=== PATIENT | female | born 1955 | race Caucasian/White ===

== ENCOUNTER 2016-06-08 02:26 | Inpatient (IN) | payer OTHER ==
[~2016-06-08] VITALS: Ht 152.4 cm; Wt 111.1 kg
[~2016-06-08 02:26] MED LIST: CLONAZEPAM0.5 M2 PO; COUMADIN7.5 M1 PO; CYMBALTA30 M1 PO; CYMBALTA60 M1 PO; FIORINAL 50-321 EACH PO; LAMICTAL150 M1 PO; PRAVACHOL40 M1 PO; PROAIR HFA8.5 GM INH; TRAMADOL HCL50 M1 PO; VERAPAMIL ER240 M1 PO
[2016-06-08 06:54] LABS: PT 21.1 SEC (9.4-12.5)
[2016-06-14 09:30] LABS: PT 13.2 SEC (9.4-12.5)
[2016-06-14] MEDS ORDERED: LOVENOX40 MG/0.1 SC (09:52)
--- NOTE | 2016-06-14 11:06 | Admission Core Measures ---
Admission Lab Results I reviewed the following labs: Laboratory Tests 06/14 0925 Coagulation PT (9.4 - 12.5 SEC) 13.2 H INR (0.90 - 1.19) 1.26 H Admission Meds I reviewed the following Meds: Current Medications Sig/Cynthia Start time Last Medication Dose Stop Time Status Admin Cefazolin Sodium 3,000 MG ONCE 06/14 0000 NR (Kefzol-Ancef Inj) 06/14 2358 Heparin Sodium 5,000 UNIT ONCE 06/14 0000 NR (Porcine) 06/14 235 Acute Coronary Syndrome Inclusion Criteria ACS Diagnosis No Inpatient Core Measures LDL Reminder: If No, please order W/I first 24hr of stay Congestive Heart Failure Inclusion Criteria CHF Diagnosis No Cerebrovascular accident Inclusion Criteria CVA/TIA Diagnosis No Inpatient Core Measures Bedside Swallow Eval Reminder: If BSE failed, place ST order Antithrombotic Reminder: Order Antithrombotic Medication by end of day 2 Antithrombotic Reminder: Document Reason Antithrombotic Not ordered by end of day 2 AFIB/Flutter Reminder: If Present, add to problem list AFIB/Flutter Reminder: Order Anticoag Medication for pts with AFIB/Flutter Atherosclerosis Reminder: If Present, add to problem list LDL Reminder: If No, please order W/I first 24hr of stay PT Order Reminder: If No, please order Venous thromboembolism Inpatient Core Measures VTE Risk Factors: Age > 40, Obesity, Previous VTE, Surgery VTE Prophylaxis Ordered Inpt Mech & Pharm No Mech VTE prophylaxis d/t No contraindications No VTE Pharm Prophylaxis d/t No contraindications Inclusion Criteria - Per Current guidelines, there needs to be overlap - treatment for the first 5 days of Warfarin therapy. - Parenteral Anticoagulation (IV or SC) needs to be - given along with Warfarin therapy. VTE Diagnosis No VTE Type NONE VTE Confirmed by (Test) NONE Problem List As ranked by this Provider includes Assessment & Plan 1. S/P laparoscopic sleeve gastrectomy HOME MEDS Home Med List Albuterol Sulfate (Proair Hfa) 90 MCG HFA.AER.AD 1-2 PUF INH PRN RESPIRATORY (Reported) Clonazepam 0.5 MG TABLET 1 TAB PO DAILY DEPRESSION (Reported) Duloxetine HCl (Cymbalta) 60 MG CAPSULE.DR 1 CAP PO DAILY DEPRESSION ( Reported) Duloxetine Hydrochloride (Cymbalta) 30 MG CAPSULE.DR 1 CAP PO DAILY DEPRESSION (Reported) Enoxaparin Sodium (Lovenox) 40 MG/0.4 ML SYRINGE 1 INJ SC X1 ANTICOAG ( Reported) Fiorinal (Fiorinal 50-325-40 MG Capsule) (Unknown Strength) CAPSULE (Unknown Dose) PO PRN MIGRAINES (Reported) Lamotrigine (Lamictal) 150 MG TABLET 1 TAB PO EOD DEPRESSION (Reported) Pravastatin Sodium (Pravachol) 40 MG TABLET 1 TAB PO DAILY CHOLESTEROL ( Reported) Tramadol HCl 50 MG TABLET 25 MG PO PRN PAIN (Reported) Verapamil HCl (Verapamil ER) 240 MG TABLET.ER 1 TAB PO DAILY BP (Reported) Warfarin Sodium (Coumadin) 7.5 MG TABLET 1 TAB PO DAILY PE HISTORY (Reported)
--- NOTE | 2016-06-14 13:36 | Operative Report ---
Operative/Inv Procedure Report Surgery Date: 06/14/16 Name of Procedure: Laparoscopic sleeve gastrectomy and EGD Pre-Operative Diagnosis: Severe morbid obesity BMI 40 hypertension and sleep apnea Post-Operative Diagnosis: Severe morbid obesity BMI 40 and hypertension and sleep apnea Estimated Blood Loss: less than 50ml Surgeon/Radiologic Technology Program Director: Jaswinder Boswell MD Anesthesia: general endotracheal tube Implants: None Drains: MICA drains placed in the right upper quadrant overlying the stomach staple line Operative Indication: The patient had been taken off Coumadin and is now on Lovenox. Her INR was tested to 1.2. She is now ready for sleeve gastrectomy. I have explained the risks and potential complications of the procedure in detail including bleeding infection deep venous thrombosis pulmonary embolism injury to the esophagus stomach small intestine and large intestine injury to the surrounding organs. The patient is consented for surgical intervention and a liang Delcid Operative/Procedure Note Note: The patient was brought into the operating room and placed on the operating room table in the supine position after the administration of general anesthesia, the patient was prepped and draped in the sterile fashion. An incision was made below the umbilicus transversely down to the fascia and incision was made in the fascia 1-0 Vicryl suture was placed in the fascia. A 15 mm port was inserted into the abdominal cavity and the abdomen was insufflated with CO2 gas. A 5 mm port was placed in the right upper quadrant a 12 mm port in the right mid abdomen. There were only adhesions in the left upper quadrant which were taken down with the Harmonic scalpel. A 5 mm port was placed in the left upper quadrant a 12 mm port alf between the xiphoid and the umbilicus and a 5 mm incision was made subxiphoid and the liver was elevated. At this time the gastrocolic ligament was taken down with the LigaSure device extending all the way up to the angle of Pettit taking down the short gastric vessels. As noted did appear that the short gastric vessels were mostly already but the fatty omentum was adherent to the stomach and this was taken down. There was no evidence of the spleen. The left per the diaphragm was exposed. There is no evidence of a hiatal hernia. The stomach was decompressed with an NG tube. The bougie was placed 38 Greenlandic and the stomach position along lesser curve. First firing of a black cartridge with seam guard was placed a second firing with the black cartridge seam guard was placed. Then 3 more firings of lobe purple cartridge. The stomach was inverted and oversewn with a 20V lock suture achieving hemostasis. The bougie was removed and upper endoscopy was performed in the usual fashion of the GE junction at 35 cm there is an excellent sleeve gastrectomy other one could see as it was long and thin but not too thin. Retroflexion was performed. The pylorus was intubated and the first portion of the duodenum was visualized are no abnormalities. The endoscope was removed. Laparoscopy continued the needle was removed the stomach was placed in laparoscopic bag and retrieved through the umbilicus a MICA was placed over the staple line brought out the right upper quadrant the ports removed under direct vision the gastric and the abdomen the Valsalva maneuvers perform the fascia was closed with 3 interrupted 0 Vicryl sutures. Skin was closed with 4-0 Monocryl to MICA was sewn in with a 2-0 nylon sterile dressing was in the wound site. The patient PROCEDURE well and amputation O Bhavin Jin Findings: No evidence of hiatal hernia adhesions in the left upper quadrant no evidence of the spleen
[2016-06-14] MEDS ORDERED: HYCET 7.5 MG-3473 ML PO (15:07)
[2016-06-14] MEDS ORDERED: PROTONIX40 M3 PO (15:08)
--- NOTE | 2016-06-14 15:14 | Patient Discharge Instructions ---
Discharge Instructions General Discharge Information You were seen/treated for: Morbid obesity You had these procedures: Laparoscopic sleeve gastrectomy Watch for these problems: Significantly increased pain, nausea, temperatures, Redness or drainage from incisions Chest pain or difficulty breathing No bath, but you may shower: Yes Other wound care: Remove dressings when he come home leaving white strips intact. Shower regularly but no bath Special Instructions: See preprinted information packet Ambulate frequently May use Gas-X or gas pain Continue using Lovenox until you are INR is therapeutic and continue to follow up with your primary care physician for INR monitoring while on Coumadin therapy Diet Recommended Diet: Bariatric Activity Activity Self Limited: Yes Pounds, do NOT lift more than: 10 Acute Coronary Syndrome Inclusion Criteria At DC or during hospital stay patient has or had the following: ACS DIAGNOSIS No Discharge Core Measures Meds if any: Prescribed or Continued at Discharge Meds if any: NOT Prescribed or Continued at Discharge Congestive Heart Failure Inclusion Criteria At DC or during hospital stay patient has or had the following: CHF DIAGNOSIS No Discharge Core Measures Meds if any: Prescribed or Continued at Discharge Meds if any: NOT Prescribed or Continued at Discharge Cerebrovascular accident Inclusion Criteria At DC or during hospital stay patient has or had the following: CVA/TIA Diagnosis No Discharge Core Measures Meds if any: Prescribed or Continued at Discharge Meds if any: NOT Prescribed or Continued at Discharge Venous thromboembolism Inclusion Criteria VTE Diagnosis No VTE Type NONE VTE Confirmed by (Test) NONE Discharge Core Measures - Per Current guidelines, there needs to be overlap - treatment for the first 5 days of Warfarin therapy. - If discharged on Warfarin prior to 5 days of - overlap therapy, the patient will need to be - assessed for post discharge needs including - *Post discharge parental anticoagulation - *Warfarin and/or parental anticoagulation education - *Follow up date to check INR post discharge At least 5 days overlap therapy as Inpatient No Meds if any: Prescribed or Continued at Discharge Note: Overlap Therapy is Warfarin and Anticoagulant Meds if any: NOT Prescribed or Continued at Discharge
--- NOTE | 2016-06-14 15:18 | PN- Bariatrics ---
Subjective Subjective: The patient was seen this afternoon postoperatively. She reports that she is relatively comfortable although complains of some left shoulder pain. She has tolerated a small amount of ice chips and denies any nausea. She has no complaints of current time he denies any chest pain or difficulty breathing. Objective Vital Signs and I&Os Vital signs: Blood pressure 134/80, pulse 83, temperature 97.6, O2 saturation 96 % on 2 L via nasal cannula I's and O's: 1200 ML's in of lactated Ringer's/EBL less than 50/MICA 10 mL/patient is due to void postoperatively Physical Exam: Gen.: Alert and obvious distress Skin: Warm and dry Cardiac: S1-S2 regular Pulmonary: Bilateral breath sounds are equal but decreased at bases Abdomen: Soft, obese, appropriate incisional tenderness, bowel sounds sluggish. Port sites are clean, dry, and intact. There is a MICA 1 holding suction with serosanguineous drainage and bulb. Extremities: Bilateral lower extremities warm without calf tenderness or significant edema. Assessment/Plan Assessment/Plan Assessment: 60-year-old female status post laparoscopic sleeve gastrectomy. The patient is progressing as expected and her pain is under adequate control. Plan: Continue stage I diet but keep the patient nothing by mouth after midnight for an upper GI series in the morning Out of bed and ambulate GI and DVT prophylaxis Resume selected home medications Continue current pain regiment Strict I's and O's and monitor for postoperative void Core Measures/Miscellaneous Venous Thromboembolism VTE Risk Factors: Age > 40, Obesity, Previous VTE, Surgery VTE Contraindications: No Contraindications VTE Prophylaxis Ordered Inpt: Mech & Pharm VTE Diagnosis: No VTE Type: NONE VTE Confirmed by (Test): NONE Beta Laure Is Beta Laure a Home Med? No Antibiotics Is Patient on Antibiotics? Yes If Yes: prophylaxis
--- NOTE | 2016-06-14 15:20 | Surg Short-stay <48hrs Dis Sum ---
Visit Information Visit Dates Admission Date: 06/14/16 Discharge Date: 06/17/16 Surgical Short Stay DC Summary Admission Diagnosis: Morbid obesity Final Diagnosis: Same Procedure(s): Laparoscopic sleeve gastrectomy Summary/Significant Findings: Patient was admitted on 06/14/2016. She was brought to the operating theater and underwent a laparoscopic sleeve gastrectomy. She had shortness of breath on post-op day #1 with a cta study negative for PE, transferred to ICU for monitoring, and consultation by (pulm). Her dyspnea improved, and she was transferred out of the ICU on post-op day#2. She restarted her usual dose of coumadin (for hx of PE) on post-op day#1 and is continuing daily lovenox injections until her INR is therapeutic (INR 2-3). Her MICA drain was removed on post-op day#1. She was discharged to home on post-op day#3 after being cleared by . Condition at Discharge: Stable Discharge Disposition: home or self care Discharge instructions provided to patient/family: Yes Post discharge follow-up plan: Call the office to be seen in one week
[2016-06-14 16:00] VITALS: BP 162/92
--- NOTE | 2016-06-14 16:15 | NUR ---
ADMISSION NOTE: PT ARRIVED TO FLOOR VIA STRETCHER WITH DISTRIBUTION, WALKED FROM STRETCHER TO BED WITH MINIMAL ASSISTENCE. A/OX3, ROOM AIR, 5 ABDOMINAL SURG INSICIONS DRESSED WITH GAUZE AND TEGADERM WITH SCANT DRY BLOODY DRAINAGE, MICA DRAIN TO RT SIDE CONTAINING SMALL AMT OF BLOODY DRAINAGE, PT C/O GAS PAIN TO EPIGASTRIC REGION RADIATING TO LEFT SHOULDER, IV SITE INTAT, FLUIDS RUNNING PER MD ORDER, ORIENTED TO ROOM, PT EDUCATED TO SIP BARIATRIC DRINK 30MLS/15MINS AND AMBULATE 1 LAP EVERY HOUR. SHE WALKED ONE LAP IMMEDIATELY, STEADY GAIT AND STARTED SIPPING. RSTING IN BED IN LOW LOCKED POSITION, WILL CONTINUE TO MONITOR.
[2016-06-14 20:51] VITALS: BP 142/86
[2016-06-15 00:39] VITALS: BP 107/50
--- NOTE | 2016-06-15 07:17 | PN- Bariatrics ---
Subjective Subjective: Reports pain controlled. Nausea slightly better this morning. Ambulating with some exertional shortness of breath. No chest pains. No dizziness. Voiding without difficulty. Passing flatus. Objective Vital Signs and I&Os Vital Signs Date Time Temp Pulse Resp B/P Pulse O2 O2 Flow FiO2 Ox Delivery Rate 06/15 599 96 Room Air 06/15 0039 97.7 79 20 107/50 93 CPAP 06/15 0000 96 CPAP 06/15 0000 96 CPAP 06/14 2050 99.1 92 18 142/86 94 06/14 2000 95 Room Air 06/14 1600 98.2 89 18 162/92 95 Room Air Intake & Output 06/15 0806/15 0000 06/14 1600 06/14 0806/14 0000 06/13 1600 Intake Total 1000 620 Output Total 300 730 Balance 700 -110 Intake, IV 1000 500 Intake, Oral 120 Output, 30 Drainage Output, Urine 300 700 Patient 245 lb Weight Physical Exam: General - alert & oriented x 3. comfortable. Lungs - clear bilaterally. no w/r/r. Cardiac - s1s2. reg. Abdomen - soft. dressings stained but intact. MICA drain with serosang drainage. expected yuliana-incisional tenderness. Extremities - warm bilaterally. no c/c/e. calves soft and nontender b/l. Assessment/Plan Assessment/Plan This 60 year old white female with hx morbid obesity (BMI 40), hypertension, and sleep apnea is POD#0 s/p lap sleeve gastrectomy, MICA drain x 1 currently npo for upper gi study this morning dilaudid / toradol / hycet prn pain control f/u labs coumadin 7.5 mg today (home med for hx of PE) lovenox 40 mg daily. teaching for home oob/ambulation monitor MICA drain output protonix - gi ppx d/c planning likely tomorrow will d/w Core Measures/Miscellaneous Venous Thromboembolism VTE Risk Factors: Age > 40, Obesity, Previous VTE, Surgery VTE Contraindications: No Contraindications VTE Prophylaxis Ordered Inpt: Mech & Pharm VTE Diagnosis: No VTE Type: NONE VTE Confirmed by (Test): NONE Beta Laure Is Beta Laure a Home Med? No Antibiotics Is Patient on Antibiotics? Yes If Yes: prophylaxis
[2016-06-15 08:11] LABS: ABSOLUTE BASOPHIL COUNT 0 /CUMM (0.0-0.2); ABSOLUTE EOSINOPHIL COUNT 0 /CUMM (0.0-0.7); ABSOLUTE GRANULOCYTE CT 6.5 /CUMM (1.4-6.5); ABSOLUTE LYMPH COUNT 1.4 /CUMM (1.2-3.4); ABSOLUTE MONOCYTE COUNT 1.2 /CUMM (0.10-0.60); BASOPHIL % 0.4 % (0.0-2.0); EOSINOPHIL % 0 % (0-5); GRANULOCYTE % 70.5 % (42.2-75.2); HEMATOCRIT 41.1 % (37-47); MEAN CORPUSCULAR HGB 30.5 PG (27.0-31.0); MEAN CORPUSCULAR HGB CONC 35.3 G/DL (33.0-37.0); MEAN CORPUSCULAR VOLUME 86.5 FL (81.0-99.0); MEAN PLATELET VOLUME 7.6 FL (7.4-10.4); PLATELET COUNT 422 /CUMM (130-400); RBC DISTRIBUTION WIDTH 15.5 % (11.5-14.5); RED BLOOD CELL CT 4.76 /CUMM (4.20-5.40); WHITE BLOOD CELL COUNT 9.2 /CUMM (4.8-10.8)
[2016-06-15 08:20] LABS: PT 12.6 SEC (9.4-12.5)
[2016-06-15 08:34] VITALS: BP 112/58
--- NOTE | 2016-06-15 12:56 | NUR ---
PT C/O SOB AND STATES SHES FEELS LIKE SHE DID WHEN SHE HAD A PE; RR 28, HR 92, BP 130/80, PSO2 98 TEMP 97.7; PA NOTIFIEDL STAT CTA IN PLACE.
[2016-06-15 13:00] VITALS: BP 130/80
--- NOTE | 2016-06-15 13:12 | Event Note ---
Event Note Event Note: I was called by the patient's nurse that she was complaining of a sudden onset of chest pain which she reports feeling similar to the pain she has had in the past when diagnosed with a pulmonary embolus. The patient was afebrile with stable vital signs and adequate oxygenation. The patient was seen reporting that the pain started substernal with some radiation to her right chest she described it as sharp and pressure-like in nature. She reports that her pain made it difficult to take a deep breath. She also is complaining of a bandlike pain across her upper abdomen which I explained to was probably normal postoperative course. She no other complaints the current time. A stat CT angiogram, EKG, and troponin have been ordered. The case was discussed with Jaswinder Delcid MD who agrees the above plan and will be in to see the patient shortly.
--- NOTE | 2016-06-15 14:03 | NUR ---
CALL FROM CT EXPRESSING COMCERN REGARDING PT; CALLER STATES PT IS SOB AND DOESNT LOOK WELL; THIS RN INFORMED THEM TO CALL A RAPID RESPONSE IF NEEDED; NO RR HEARD; RETURN CALL MADE TO CT SCAN; RN ON PHONE INFORMED ME PT WOULD BE PLACED ON A MONITOR AND SENT UP AND THAT SURGICAL PA WAS MADE AWARE.
--- NOTE | 2016-06-15 14:12 | RADIOLOGY REPORT ---
EXAMINATION: FL SINGLE-CONTRAST UPPER GI SERIES WITH KUB CLINICAL INFORMATION: Status post sleeve gastrectomy. COMPARISON: Esophagram 10/26/[address] scan of the abdomen and pelvis 05/28/2012. TECHNIQUE: Examination performed with 30 mL oral Gastroview. Fluoroscopic loop images and spot radiographs were obtained. FINDINGS: Preliminary AP radiograph demonstrates a left upper quadrant staple line related to sleeve gastrectomy. An IVC filter is redemonstrated. Patient ingested water-soluble contrast without difficulty. There is no evidence of distal esophageal dilatation. There is mild delay in passage of contrast across the gastroesophageal junction into the stomach. The proximal and mid stomach have a tubular configuration related to the sleeve gastrectomy. No evidence of leak or obstruction. There is free flow of contrast through the pylorus into the duodenal sweep. FLUOROSCOPY TIME: 1 minute 42 seconds IMPRESSION: 1. No evidence of leak or obstruction post sleeve gastrectomy. 2. There is mild delay in passage of contrast across the gastroesophageal junction.
--- NOTE | 2016-06-15 14:14 | CT SCAN REPORT ---
EXAMINATION: CT ANGIOGRAM OF THE CHEST WITH CONTRAST (CT PULMONARY ANGIOGRAM FOR PE) CLINICAL INFORMATION: Chest pain. COMPARISON: Chest CT from 04/12/2010. CXR from 06/07/2016. TECHNIQUE: Prior to contrast administration, noncontrast localization images were obtained. Subsequently, multidetector volumetric imaging was performed from the thoracic inlet to below the diaphragms following the administration of 94 mL of Optiray 320 intravenous contrast. No contrast reaction reported. Sagittal, coronal, and MIP oblique sagittal reformatted images were obtained on the CT workstation, uploaded to PACS, and reviewed. Total exam dose-length product 540 mGy-cm FINDINGS: QUALITY OF STUDY/CONTRAST BOLUS: Satisfactory. PULMONARY ARTERIES: No filling defects are identified in the main, lobar or segmental vessels. THORACIC AORTA: There is atherosclerotic calcification of the thoracic aorta without aneurysm or dissection. LUNGS AND PLEURA: Trachea and central airways are widely patent and normal in caliber. There is an old 0.3 cm calcified subpleural nodule in the medial right upper lobe. There are old, stable 0.3 cm noncalcified nodules within the right middle lobe (images 216 and 232, series 2). There is a punctate calcified granuloma in the lateral segment of the right middle lobe. There is an old, 0.3 cm noncalcified nodule pleural-based nodule of the right lower lobe (image 217, series 2). 0.3 cm calcified granuloma within the left upper lobe. No pulmonary edema, focal consolidation, pleural effusion or pneumothorax. MEDIASTINUM: The heart size is normal. No pericardial effusion. Small amount of fluid is seen within the lumen of the esophagus. No focal findings within the partially visualized thyroid gland. No evidence of septal bowing or right heart strain. LYMPHATICS: No pathologically enlarged axillary, hilar or mediastinal lymph nodes. UPPER ABDOMEN: Surgical changes from partial/sleeve gastrectomy. Spleen is absent. No reflux of contrast into the hepatic veins to suggest elevated right heart pressures. OSSEOUS STRUCTURES: No acute findings within the degenerated thoracic spine. No aggressive osseous lesions. IMPRESSION: 1. No pulmonary embolism. 2. Old granulomatous disease. 3. No acute pneumonia, pleural effusion or lymphadenopathy.
[2016-06-15 16:00] VITALS: BP 112/60
--- NOTE | 2016-06-15 19:21 | Cons- Pulmonary ---
General Information and HPI Consulting Request Date of Consult: 06/15/16 Requested By: Surg History of Present Illness: This is a lady with a remote history of pulmonary embolism, IVC filter, has been on warfarin since then, obstructive sleep apnea on CPAP, heriditary spherocytosis status post splenectomy, dyslipidemia, migraine, previous endometrial ablation, GERD, varicose veins status post stripping, dyslipidemia, depression, previous , status post knee replacements both sides, carpal tunnel, reactive airway disease on and off, anxiety and depression, recent operation for bariatric surgery. She has had status post lap sleeve gastrectomy. Patient has been on a usual medication. However today she was complaining of sudden onset precordial chest discomfort and she felt the pain similar to the one she has had a PE before. Subsequently a CTA was unremarkable. He did show some atelectasis in the CT scan. She did have an EKG and blood work which was unremarkable. And she was transferred to the intensive care unit for monitoring. And hence this consult. When I saw her she had no cough wheezing shortness of breath no fever no chills. Her chest pain had resolved. 8 O2 sat was 97% on room air. Did increase to 99 % upon deep inspiration. No leg pain leg edema. No abdominal pain abdominal discomfort. Patient has had sleep apnea and has been on CPAP yesterday. Review of symptoms as noted above No previous history of significant CO. No SIGNIFICANT DATA SMA-7 unremarkable troponin normal Pending EKG CT scan reviewed which showed no pulmonary embolism old granulomatous disease no acute pneumonia and pleural effusion or lymphadenopathy. And there was no significant difference from the previous CT done from 2009. Allergies/Medications Allergies: Coded Allergies: risperidone (PSYCHOTIC 05/31/16) Uncoded Allergies: BATH OILS (Intermediate, HIVES 09/04/12) Home Med List: Albuterol Sulfate (Proair Hfa) 90 MCG HFA.AER.AD 1-2 PUF INH PRN RESPIRATORY (Reported) Clonazepam 0.5 MG TABLET 1 TAB PO DAILY DEPRESSION (Reported) Duloxetine HCl (Cymbalta) 60 MG CAPSULE.DR 1 CAP PO DAILY DEPRESSION ( Reported) Duloxetine Hydrochloride (Cymbalta) 30 MG CAPSULE.DR 1 CAP PO DAILY DEPRESSION (Reported) Enoxaparin Sodium (Lovenox) 40 MG/0.4 ML SYRINGE 1 INJ SC X1 ANTICOAG ( Reported) Fiorinal (Fiorinal 50-325-40 MG Capsule) (Unknown Strength) CAPSULE (Unknown Dose) PO PRN MIGRAINES (Reported) Lamotrigine (Lamictal) 150 MG TABLET 1 TAB PO EOD DEPRESSION (Reported) Pravastatin Sodium (Pravachol) 40 MG TABLET 1 TAB PO DAILY CHOLESTEROL ( Reported) Tramadol HCl 50 MG TABLET 25 MG PO PRN PAIN (Reported) Verapamil HCl (Verapamil ER) 240 MG TABLET.ER 1 TAB PO DAILY BP (Reported) Warfarin Sodium (Coumadin) 7.5 MG TABLET 1 TAB PO DAILY PE HISTORY (Reported) Review of Systems Review of Systems Constitutional: Reports: see HPI. Past History Medical History Blood Transfusion Hx: Yes Neurological: migraine EENT: hearing loss, otitis media Cardiovascular: hypertension Respiratory: obstructive sleep apnea Gastrointestinal: NONE Hepatic: NONE Renal: NONE Musculoskeletal: chronic back pain, osteoarthritis, PAIN TO KNEES AND FEET Psychiatric: anxiety, depression Endocrine: NONE Blood Disorders: POICOLYTOSISHIGH PLATELET 2 BILATERAL PE'S, IVC FILTER Cancer(s): NONE BIOLOGY LABORATORY ASSISTANT/Reproductive: endometriosis Surgical History Surgical History: BILAT TOTAL KNE ARTHOPLAS SLENECTOMY, TUBAL LIGATION, BILAT CARPAL TUNNEL, ENDOMETRIAL ABALATION Psychosocial History Where Do You Live? Home Services at Home: None Smoking Status: Never Smoked Exam & Diagnostic Data Last 24 Hrs of Vital Signs/I&O Vital Signs Date Time Temp Pulse Resp B/P Pulse O2 O2 Flow FiO2 Ox Delivery Rate 06/15 1600 97 Room Air 06/15 1600 99.1 78 22 112/60 97 Room Air 06/15 1300 97.7 92 28 130/80 98 Room Air 06/15 1033 Room Air 06/15 0834 98.5 73 20 112/58 92 Room Air 06/15 0800 Room Air 06/15 0600 96 Room Air 06/15 0039 97.7 79 20 107/50 93 CPAP 06/15 0000 96 CPAP 06/15 0000 96 CPAP 06/14 205 99.1 92 18 142/86 94 06/14 2000 95 Room Air Intake & Output 06/15 1600 06/15 0800 06/15 0000 Intake Total 1200 1000 620 Output Total 440 310 730 Balance 760 690 -110 Intake, IV 600 1000 500 Intake, Oral 600 120 Output, 10 30 Drainage Output, Urine 440 300 700 Patient 245 lb Weight Last 48 Hrs of Labs/Blaise: Laboratory Tests 06/15/16 1427: Troponin I < 0.01 06/15/16 0640: Anion Gap 15, Estimated GFR > 60, BUN/Creatinine Ratio 15.0, PT 12.6 H, INR 1.20 H, CBC w Diff NO MAN DIFF REQ, RBC 4.76, MCV 86.5, MCH 30.5, RDW 15.5 H, MPV 7.6, Gran % 70.5, Lymphocytes % 15.7 L, Monocytes % 13.4 H, Eosinophils % 0, Basophils % 0.4, Absolute Granulocytes 6.5, Absolute Lymphocytes 1.4, Absolute Monocytes 1.2 H, Absolute Eosinophils 0, Absolute Basophils 0, PUBS MCHC 35.3 06/14/16 0925: PT 13.2 H, INR 1.26 H Assessment/Plan Impression/Plan: Physical Exam: General - alert & oriented x 3. comfortable. Lungs - clear bilaterally. no w/r/r. Cardiac - s1s2. reg. Abdomen - soft. dressings stained but intact.. expected yuliana-incisional tenderness. Extremities - warm bilaterally. no c/c/e. calves soft and nontender b/l. IMPRESSION This is a lady with a remote history of pulmonary embolism, IVC filter, has been on warfarin since then, obstructive sleep apnea on CPAP, heriditary spherocytosis status post splenectomy, dyslipidemia, migraine, previous endometrial ablation, GERD, varicose veins status post stripping, dyslipidemia, depression, previous , status post knee replacements both sides, carpal tunnel, reactive airway disease on and off, anxiety and depression, recent operation for bariatric surgery. Precordial chest discomfort most likely related to her surgery versus GERD. No clinical evidence suggestive of active pulmonary embolism or active pulmonary physiology. No clinical evidence suggestive of active ischemic heart however this needs to be ruled out Morbid obesity with sleep apnea. Patient is on CPAP at home. This needs to be avoided the next few days to prevent any gastric distention as she recently had gastric surgery No clinical evidence suggestive of venous thromboembolism Anxiety and depression stable Previous splenectomy hence immunosuppressed RECOMMENDATION Rule out myocardial infarction Serial EKG Proton pump inhibitor twice a day Venodyne boots Continue warfarin and suggest using Lovenox 40 mg pill INR is therapeutic as patient is immediate postop full anticoagulation can be avoided Cardiology evaluation of chest discomfort persists Monitor If she stable she can return to the floor Keep O2 sat 90-92%. Avoid CPAP for the next 2-3 days as she did have recent gastric surgery as CPAP could precipitated gastric distention Appears to be stable Consult Acknowledgment - Thank you for your consult request.
[2016-06-16] VITALS: BP 132/80
[2016-06-16 05:25] LABS: ABSOLUTE BASOPHIL COUNT 0 /CUMM (0.0-0.2); ABSOLUTE EOSINOPHIL COUNT 0.1 /CUMM (0.0-0.7); ABSOLUTE GRANULOCYTE CT 3.4 /CUMM (1.4-6.5); ABSOLUTE LYMPH COUNT 2.5 /CUMM (1.2-3.4); ABSOLUTE MONOCYTE COUNT 1.3 /CUMM (0.10-0.60); BASOPHIL % 0.6 % (0.0-2.0); EOSINOPHIL % 0.9 % (0-5); GRANULOCYTE % 46.1 % (42.2-75.2); HEMATOCRIT 38.8 % (37-47); MEAN CORPUSCULAR HGB 30.5 PG (27.0-31.0); MEAN CORPUSCULAR VOLUME 87.1 FL (81.0-99.0); MEAN PLATELET VOLUME 7.5 FL (7.4-10.4); PLATELET COUNT 384 /CUMM (130-400); PT 13.3 SEC (9.4-12.5); RBC DISTRIBUTION WIDTH 15.7 % (11.5-14.5); RED BLOOD CELL CT 4.46 /CUMM (4.20-5.40); WHITE BLOOD CELL COUNT 7.4 /CUMM (4.8-10.8)
--- NOTE | 2016-06-16 05:54 | PN- Bariatrics ---
Subjective Subjective: pod#2 s/p lap sleeve transferred to icu yesterday for monitoring for cp/sob chest cta negative for pe yesterday O2 sat overnight 97 on 2L deneis cp, sob now Objective Vital Signs and I&Os Vital Signs Date Time Temp Pulse Resp B/P Pulse O2 O2 Flow FiO2 Ox Delivery Rate 06/16 0400 97 Nasal 2.0L Cannula 06/16 0400 97 Nasal 2.0L Cannula 06/16 0000 98.3 74 20 132/80 95 Nasal 2.0L Cannula 06/16 0000 95 Nasal 2.0L Cannula 06/15 2200 94 Nasal 2.0L Cannula 06/15 1600 97 Room Air 06/15 1600 99.1 78 22 112/60 97 Room Air 06/15 1300 97.7 92 28 130/80 98 Room Air 06/15 1033 Room Air 06/15 0834 98.5 73 20 112/58 92 Room Air 06/15 0800 Room Air 06/15 0600 96 Room Air Intake & Output 06/16 0800 06/16 0000 06/15 1600 06/15 0800 06/15 0000 06/14 1600 Intake Total 1240 1200 1000 620 Output Total 700 440 310 730 Balance 540 760 690 -110 Intake, IV 5044 693 8124 500 Intake, Oral 240 600 120 Output, 10 30 Drainage Output, Urine 700 440 300 700 Patient 245 lb Weight Physical Exam: cv: rrr lungs: clear abd: soft, drsg dry no guarding to palp expected tenderness to palp ext: warm, distal cms grossly intact no calf tenderness to palp Assessment/Plan Assessment/Plan surgical stable plan oob ambulate f/u am labs home d/c planning Core Measures/Miscellaneous Venous Thromboembolism VTE Risk Factors: Age > 40, Obesity, Previous VTE, Surgery VTE Contraindications: No Contraindications VTE Prophylaxis Ordered Inpt: Mech & Pharm VTE Diagnosis: No VTE Type: NONE VTE Confirmed by (Test): NONE Beta Laure Is Beta Laure a Home Med? No Antibiotics Is Patient on Antibiotics? Yes If Yes: prophylaxis
[2016-06-16 08:00] VITALS: BP 122/60
--- NOTE | 2016-06-16 09:25 | PN- Pulmonary ---
Subjective HPI/Critical Care Issues: Chest pain resolved No significant shortness of breath Vital signs have stabilized. Patient has no major set of 95% but she feels better with oxygen. She does have mild hypoxemia upon exertion. She is afebrile and heart rate is 74. Review of symptoms otherwise unremarkable. No abdominal pain nausea vomiting. Her CTA was reviewed which showed old granulomatous disease Other blood work was extensively reviewed as noted in the computer her blood work was essentially unremarkable her previous troponin was completely unremarkable CBCs unremarkable her INR this morning was 1.27. Objective Current Medications: Current Medications Sig/Cynthia Start time Last Medication Dose Route Stop Time Status Admin Acetaminophen/ 15 ML Q6P PRN 06/15 1445 AC Hydrocodone Bitart PO Acetaminophen/ 15 ML Q6P PRN 06/14 1630 DC Hydrocodone Bitart PO Albuterol Sulfate 2 PUF Q4P PRN 06/15 1445 AC INH Albuterol Sulfate 2 PUF Q4P PRN 06/14 1315 DC INH Clonazepam 0.5 MG DAILY 06/16 1000 AC PO 06/23 0959 Clonazepam 0.5 MG DAILY 06/15 1000 DC 06/15 PO 06/22 0959 1041 Duloxetine HCl 30 MG DAILY 06/16 1000 AC PO Duloxetine HCl 60 MG AT BEDTIME 06/15 2200 AC 06/15 PO 2135 Duloxetine HCl 30 MG DAILY 06/15 1000 DC 06/15 PO 1040 Duloxetine HCl 60 MG AT BEDTIME 06/14 2200 DC 06/14 PO 2208 Enoxaparin Sodium 40 MG 0600 06/16 0600 AC 06/16 SC 0638 Enoxaparin Sodium 40 MG 0600 06/15 0600 DC 06/15 SC 0553 Hydromorphone HCl 0.6 MG Q4P PRN 06/15 1445 AC 06/15 IV 2038 Hydromorphone HCl 0.6 MG Q4P PRN 06/15 0730 DC 06/15 IV 1237 Hyoscyamine 0.125 MG Q4 06/15 1800 AC 06/16 SL 0637 Hyoscyamine 0.125 MG Q4 06/14 1400 DC 06/15 SL 1442 Ketorolac 30 MG Q8P PRN 06/15 1445 AC 06/16 Tromethamine IV 0402 Ketorolac 30 MG Q8P PRN 06/14 1630 DC 06/14 Tromethamine IV 2046 Lorazepam 0.5 MG ONE TIME ONE 06/15 1445 DC 06/15 IV 06/15 1446 1440 Ondansetron HCl 4 MG Q6P PRN 06/15 1445 AC 06/15 IV 2135 Ondansetron HCl 4 MG Q6P PRN 06/14 1630 DC IV Pantoprazole Sodium 40 MG DAILY 06/16 1000 AC IV Pantoprazole Sodium 40 MG DAILY 06/14 1309 DC 06/15 IV 1041 Patient Medication 1 ED .STK-MED ONE 06/15 1339 DC Teaching ED 06/15 1340 Potassium Chloride 20 MEQ Q10H 06/15 1500 DC 06/16 Dextrose/Sodium 1,000 ML IV 0013 Chloride Potassium Chloride 20 MEQ .Q10H 06/15 1445 CAN Dextrose/Sodium 1,000 ML IV Chloride Potassium Chloride 20 MEQ .Q10H 06/14 1630 DC 06/15 Dextrose/Sodium 1,000 ML IV 0646 Chloride Simethicone 40 MG Q6P PRN 06/15 1445 AC PO Simethicone 40 MG Q6P PRN 06/14 1630 DC 06/14 PO 2210 Warfarin Sodium 7.5 MG COUMADIN 1700 ONE 06/16 1700 AC PO 06/16 1701 Warfarin Sodium 7.5 MG COUMADIN 1700 ONE 06/15 1700 DC 06/15 PO 06/15 1701 1658 Laboratory Tests 06/16 06/15 0350 1427 Chemistry Sodium (137 - 145 mmol/L) 143 Potassium (3.5 - 5.1 mmol/L) 4.3 Chloride (98 - 107 mmol/L) 105 Carbon Dioxide (22 - 30 mmol/L) 28 Anion Gap (5 - 16) 10 BUN (7 - 17 mg/dL) 9 Creatinine (0.5 - 1.0 mg/dL) 0.8 Estimated GFR (>60 ml/min) > 60 BUN/Creatinine Ratio (7 - 25 %) 11.3 Troponin I (< 0.11 ng/ml) < 0.01 Coagulation PT (9.4 - 12.5 SEC) 13.3 H INR (0.90 - 1.19) 1.27 H Hematology CBC w Diff NO MAN DIFF REQ WBC (4.8 - 10.8 /CUMM) 7.4 RBC (4.20 - 5.40 /CUMM) 4.46 Hgb (12.0 - 16.0 G/DL) 13.6 Hct (37 - 47 %) 38.8 MCV (81.0 - 99.0 FL) 87.1 MCH (27.0 - 31.0 PG) 30.5 RDW (11.5 - 14.5 %) 15.7 H Plt Count (130 - 400 /CUMM) 384 MPV (7.4 - 10.4 FL) 7.5 Gran % (42.2 - 75.2 %) 46.1 Lymphocytes % (20.5 - 51.1 %) 34.6 Monocytes % (1.7 - 9.3 %) 17.8 H Eosinophils % (0 - 5 %) 0.9 Basophils % (0.0 - 2.0 %) 0.6 Absolute Granulocytes (1.4 - 6.5 /CUMM) 3.4 Absolute Lymphocytes (1.2 - 3.4 /CUMM) 2.5 Absolute Monocytes (0.10 - 0.60 /CUMM) 1.3 H Absolute Eosinophils (0.0 - 0.7 /CUMM) 0.1 Absolute Basophils (0.0 - 0.2 /CUMM) 0 PUBS MCHC (33.0 - 37.0 G/DL) 35.0 /06/14 0640 0925 Chemistry Sodium (137 - 145 mmol/L) 143 Potassium (3.5 - 5.1 mmol/L) 4.5 Chloride (98 - 107 mmol/L) 105 Carbon Dioxide (22 - 30 mmol/L) 23 Anion Gap (5 - 16) 15 BUN (7 - 17 mg/dL) 12 Creatinine (0.5 - 1.0 mg/dL) 0.8 Estimated GFR (>60 ml/min) > 60 BUN/Creatinine Ratio (7 - 25 %) 15.0 Coagulation PT (9.4 - 12.5 SEC) 12.6 H 13.2 H INR (0.90 - 1.19) 1.20 H 1.26 H Hematology CBC w Diff NO MAN DIFF REQ WBC (4.8 - 10.8 /CUMM) 9.2 RBC (4.20 - 5.40 /CUMM) 4.76 Hgb (12.0 - 16.0 G/DL) 14.5 Hct (37 - 47 %) 41.1 MCV (81.0 - 99.0 FL) 86.5 MCH (27.0 - 31.0 PG) 30.5 RDW (11.5 - 14.5 %) 15.5 H Plt Count (130 - 400 /CUMM) 422 H MPV (7.4 - 10.4 FL) 7.6 Gran % (42.2 - 75.2 %) 70.5 Lymphocytes % (20.5 - 51.1 %) 15.7 L Monocytes % (1.7 - 9.3 %) 13.4 H Eosinophils % (0 - 5 %) 0 Basophils % (0.0 - 2.0 %) 0.4 Absolute Granulocytes (1.4 - 6.5 /CUMM) 6.5 Absolute Lymphocytes (1.2 - 3.4 /CUMM) 1.4 Absolute Monocytes (0.10 - 0.60 /CUMM) 1.2 H Absolute Eosinophils (0.0 - 0.7 /CUMM) 0 Absolute Basophils (0.0 - 0.2 /CUMM) 0 PUBS MCHC (33.0 - 37.0 G/DL) 35.3 Microbiology Date/Time Procedure - Status Source Growth 06/15 1500 Surveillance Culture - RECD UPPER RESP 06/15 1500 Surveillance Culture - RECD GI Vital Signs & I&O Last 24 Hrs of Vitals and I&O: Vital Signs Date Time Temp Pulse Resp B/P Pulse O2 O2 Flow FiO2 Ox Delivery Rate 06/16 0800 97 Nasal 2.0L Cannula 06/16 0800 98.0 74 22 122/60 95 Nasal 2.0L Cannula 06/16 0400 97 Nasal 2.0L Cannula 06/16 0400 97 Nasal 2.0L Cannula 06/16 0000 98.3 74 20 132/80 95 Nasal 2.0L Cannula 06/16 0000 95 Nasal 2.0L Cannula 06/15 2200 94 Nasal 2.0L Cannula 06/15 1600 97 Room Air 06/15 1600 99.1 78 22 112/60 97 Room Air 06/15 1300 97.7 92 28 130/80 98 Room Air 06/15 1033 Room Air Intake & Output 06/16 1600 06/16 0800 06/16 0000 Intake Total 1040 1240 Output Total 1550 700 Balance -510 540 Intake, IV 800 1000 Intake, Oral 240 240 Number 0 Bowel Movements Output, Urine 1550 700 Impression/Plan Impression/Plan Impression/Plan: Physical Exam: General - alert & oriented x 3. comfortable. Lungs - clear bilaterally. no w/r/r. Cardiac - s1s2. reg. Abdomen - soft. dressings stained but intact.. expected yuliana-incisional tenderness. Extremities - warm bilaterally. no c/c/e. calves soft and nontender b/l. IMPRESSION This is a lady with a remote history of pulmonary embolism, IVC filter, has been on warfarin since then, obstructive sleep apnea on CPAP, heriditary spherocytosis status post splenectomy, dyslipidemia, migraine, previous endometrial ablation, GERD, varicose veins status post stripping, dyslipidemia, depression, previous , status post knee replacements both sides, carpal tunnel, reactive airway disease on and off, anxiety and depression, recent operation for bariatric surgery. Precordial chest discomfort most likely related to her surgery versus GERD. No clinical evidence suggestive of active pulmonary embolism or active pulmonary physiology. No clinical evidence suggestive of active ischemic heart however this needs to be ruled out Morbid obesity with sleep apnea. Patient is on CPAP at home. This needs to be avoided the next few days to prevent any gastric distention as she recently had gastric surgery No clinical evidence suggestive of venous thromboembolism Anxiety and depression stable Previous splenectomy hence immunosuppressed RECOMMENDATION Add troponin from this ams lab Serial EKG Proton pump inhibitor twice a day Venodyne boots Continue warfarin and suggest using Lovenox 40 mg till INR is therapeutic as patient is immediate postop full anticoagulation can be avoid Ok to the floor Keep O2 sat 90-92%. Avoid CPAP for the next 2-3 days as she did have recent gastric surgery as CPAP could precipitated gastric distention Appears to be stable ok to the floor and wean off oxygen
--- NOTE | 2016-06-16 09:40 | PN- General Surgery ---
Subjective Subjective: The patient feels better but still some shortness of breathe Review of Systems: O2 sat is 99 on 2L NC Review of Systems Constitutional: Reports: see HPI. Denies: no symptoms, chills, diaphoresis, fever, malaise, weakness, unexplained weight loss. Cardiovascular: Denies: chest pain, edema, palpitations. Respiratory: Reports: short of breath. Denies: cough, hemoptysis, orthopnea, sputum production, stridor, wheezing. Skin: Denies: erythema, rash. Objective Vital Signs and I&Os Stable Assessment/Plan Assessment/Plan The patient has atelectasis and needs more incentive spirometry and should go to the floor and ambulate. Possible discharge tommorrow.Stage 1 diet. Problem List: 1. S/P laparoscopic sleeve gastrectomy Core Measures/Miscellaneous Venous Thromboembolism VTE Risk Factors: Age > 40, Obesity, Previous VTE, Surgery VTE Contraindications: No Contraindications VTE Prophylaxis Ordered Inpt Mech & Pharm VTE Diagnosis: No VTE Type: NONE VTE Confirmed by (Test): NONE Beta Laure Is Beta Laure a Home Med? No Antibiotics Is Patient on Antibiotics? Yes If Yes: prophylaxis
[2016-06-16 16:00] VITALS: BP 120/60
[2016-06-17 00:42] VITALS: BP 112/86
[2016-06-17 08:13] VITALS: BP 110/77
[2016-06-17 08:21] LABS: PT 18.1 SEC (9.4-12.5)
--- NOTE | 2016-06-17 08:31 | PN- Pulmonary ---
Subjective HPI/Critical Care Issues: Doing better Afebrile Oxygenating well Being discharged today No pain next and review of symptoms otherwise unremarkable Objective Current Medications: Current Medications Sig/Cynthia Start time Last Medication Dose Route Stop Time Status Admin Acetaminophen/ 15 ML Q6P PRN 06/15 1445 AC Hydrocodone Bitart PO Albuterol Sulfate 2 PUF Q4P PRN 06/15 1445 AC INH Clonazepam 0.5 MG DAILY 06/16 1000 AC 06/16 PO 06/23 0959 0955 Clonazepam 1 MG .STK-MED ONE 06/16 0950 DC PO 06/16 0951 Duloxetine HCl 30 MG DAILY 06/16 1000 AC 06/16 PO 0955 Duloxetine HCl 60 MG AT BEDTIME 06/15 2200 AC 06/16 PO 2128 Enoxaparin Sodium 40 MG 0600 06/16 0600 AC 06/17 SC 0619 Hydromorphone HCl 0.6 MG Q4P PRN 06/15 1445 AC 06/15 IV 2038 Hyoscyamine 0.125 MG Q4 06/15 1800 AC 06/17 SL 0619 Ketorolac 30 MG .STK-MED ONE 06/16 2122 DC Tromethamine IM 06/16 2123 Ketorolac 15 MG .STK-MED ONE 06/16 1141 DC Tromethamine IM 06/16 1142 Ketorolac 15 MG .STK-MED ONE 06/16 1139 DC Tromethamine IM 06/16 1140 Ketorolac 30 MG Q8P PRN 06/15 1445 AC 06/16 Tromethamine IV 2128 Ondansetron HCl 4 MG .STK-MED ONE 06/16 1138 DC IM 06/16 1139 Ondansetron HCl 4 MG Q6P PRN 06/15 1445 AC 06/16 IV 1142 Pantoprazole Sodium 40 MG DAILY 06/16 1000 AC 06/16 IV 0955 Simethicone 40 MG Q6P PRN 06/15 1445 AC PO Warfarin Sodium 7.5 MG COUMADIN 1700 ONE 06/16 1700 DC 06/16 PO 06/16 1701 1546 Vital Signs & I&O Last 24 Hrs of Vitals and I&O: Vital Signs Date Time Temp Pulse Resp B/P Pulse O2 O2 Flow FiO2 Ox Delivery Rate 06/17 812 97.7 68 20 110/77 93 Room Air 06/17 0600 93 Room Air 06/17 0042 97.9 76 20 112/86 95 Room Air 06/16 2200 Room Air 06/16 1600 97.1 76 20 120/60 96 Intake & Output 06/17 1600 06/17 0800 06/17 0000 Intake Total 240 360 Output Total 500 Balance -260 360 Intake, Oral 240 360 Output, Urine 500 Impression/Plan Impression/Plan Impression/Plan: Physical Exam: General - alert & oriented x 3. comfortable. Lungs - clear bilaterally. no w/r/r. Cardiac - s1s2. reg. Abdomen - soft. expected yuliana-incisional tenderness. Extremities - warm bilaterally. no c/c/e. calves soft and nontender b/l. IMPRESSION This is a lady with a remote history of pulmonary embolism, IVC filter, has been on warfarin since then, obstructive sleep apnea on CPAP, heriditary spherocytosis status post splenectomy, dyslipidemia, migraine, previous endometrial ablation, GERD, varicose veins status post stripping, dyslipidemia, depression, previous , status post knee replacements both sides, carpal tunnel, reactive airway disease on and off, anxiety and depression, recent operation for bariatric surgery. Resolved Precordial chest discomfort most likely related to her surgery versus GERD. No clinical evidence suggestive of active pulmonary embolism or active pulmonary physiology. No clinical evidence suggestive of active ischemic heart however this needs to be ruled out Morbid obesity with sleep apnea. Patient is on CPAP at home. This needs to be avoided the next few days to prevent any gastric distention as she recently had gastric surgery No clinical evidence suggestive of venous thromboembolism Anxiety and depression stable Previous splenectomy hence immunosuppressed RECOMMENDATION Stable to be discharged Proton pump inhibitor twice a day Continue warfarin Can resume CPAP Appears to be stable ok to DC
--- NOTE | 2016-06-17 08:38 | PN- Bariatrics ---
Subjective Subjective: Feeling better. Improved breathing. Tolerating stage 1 bariatric diet. Only nauseous when "taking too much at a time". Otherwise not nauseous. Passing flatus and +bms. Ambulating well. No dizziness. Baseline dyspnea with exertion. No chest pains. Voiding well. Familiar with lovenox injections. Objective Vital Signs and I&Os Vital Signs Date Time Temp Pulse Resp B/P Pulse O2 O2 Flow FiO2 Ox Delivery Rate 06/17 812 97.7 68 20 110/77 93 Room Air 06/17 0600 93 Room Air 06/17 0042 97.9 76 20 112/86 95 Room Air 06/16 2200 Room Air 06/16 1600 97.1 76 20 120/60 96 Intake & Output 06/17 1600 06/17 0806/17 0000 06/16 1600 06/16 0806/16 0000 Intake Total 240 854 931 9132 1240 Output Total 778 855 0469 700 Balance -260 360 -260 -510 540 Intake, IV 716 144 5592 Intake, Oral 240 360 240 240 240 Number 1 0 Bowel Movements Output, Urine 416 295 3786 700 Physical Exam: General - alert & oriented x 3. comfortable. no acute distress. Lungs - clear bilaterally. no w/r/r. Cardiac - s1s2. reg. Abdomen - soft. dressings stained, but intact. expected yuliana-incisional tenderness. Extremities - warm bilaterally. no c/c/e. calves soft and nontender b/l. Assessment/Plan Assessment/Plan This 60 year old white female with hx morbid obesity (BMI 40), hypertension, and sleep apnea is POD#3 s/p lap sleeve gastrectomy, post-op dyspnea r/o PE - symptomically better tolerating stage 1 diet pain controlled f/u labs to continue lovenox injections until INR therapeutic continue coumadin daily oob/ambulation encouraged d/c home today cleared for discharge by will d/w Core Measures/Miscellaneous Venous Thromboembolism VTE Risk Factors: Age > 40, Obesity, Previous VTE, Surgery VTE Contraindications: No Contraindications VTE Prophylaxis Ordered Inpt: Mech & Pharm VTE Diagnosis: No VTE Type: NONE VTE Confirmed by (Test): NONE Beta Laure Is Beta Laure a Home Med? No Antibiotics Is Patient on Antibiotics? Yes If Yes: prophylaxis
--- NOTE | 2016-08-01 15:58 | OP PSYCH INCIDENTAL NOTE ---
OPS Incidential Note Details: Refill Call: LULY Willard [phone] Lamictal 150mg, #30, NR Called in at 1600 on 08/01/16
== END 2016-06-17 11:09 | DRG 621 ==
LOC: UNDOADMIN 02:26 → SDA 02:26 → 2NB 06-14 04:37 → CRI 06-14 04:37 → SDA 06-14 04:37 → 2NB 06-14 15:50 → CRI 06-15 14:54 → 2NB 06-16 18:36
PROVIDERS: Physician Assistant; Physician Assistant Surgical; Surgery; ADMIT Surgery
PROC: 0DB64Z3 Excision of Stomach, Percutaneous Endoscopic Approach, Vertical (ICD-10-PCS; principal; 2016-06-14)
DX: E66.01 Morbid (severe) obesity due to excess calories (principal); K21.9 Gastro-esophageal reflux disease without esophagitis; R07.9 Chest pain, unspecified; G47.33 Obstructive sleep apnea (adult) (pediatric); I87.2 Venous insufficiency (chronic) (peripheral); Z68.43 Body mass index [BMI] 50.0-59.9, adult; I10 Essential (primary) hypertension; Z79.01 Long term (current) use of anticoagulants; Z86.711 Personal history of pulmonary embolism
CPT/HCPCS: 2NBP; 2NBSP; CCU; 36415; 74240; 82436; 88307; 93005; 93010; J0131; J0690; J1170; J1644; J1650; J1885; J2250; J2405; J3490; J7042; Q2036; S5012